=== PATIENT | female | born 1950 | race Caucasian/White ===

== ENCOUNTER → 2018-11-04 | Outpatient (REF) | payer MEDICARE, OTHER | END | disposition home or self-care (01) | LOC: MAMMO 09:52 | PROVIDERS: ATTEND Nurse Practitioner Family | DX: N95.1 Menopausal and female climacteric states (principal) ==

== ENCOUNTER 2021-04-21 09:24 | Emergency (ER) | payer MEDICARE, OTHER ==
[2021-04-21 11:01] LABS: HEMATOCRIT 35.4 % (37.0-47.0); IMMATURE GRANULOCYTES 0.6 % (0.0-5.0); MEAN CORPUSCULAR HGB 31.1 pG CALC (26.0-32.0); MEAN CORPUSCULAR HGB CONC 31.1 g/dL CAL (32.0-36.0); NEUT# 7.43 thou/uL (2.00-7.15); RED BLOOD COUNT 3.54 mill/uL (4.20-5.60); RED CELL DISTRI WIDTH 14.2 % (11.5-15.5)
[2021-04-21 11:27] LABS: ANION GAP 14 (6-22 (CALC)); BILIRUBIN, TOTAL 0.4 mg/dL (0.0-1.4); BUN 10 mg/dL (8-23); BUN/CREATININE RATIO 17 (12-20 (CALC)); CARBON DIOXIDE 27 mmol/l (22-30); CHLORIDE 100 mmol/l (95-108); CREATININE 0.6 mg/dL (0.5-1.0); GFR > 60 ML/MIN (>=60 (CALC)); GFR FOR AFR.AMER. > 60 ML/MIN (>=60 (CALC)); SGOT/AST 23 u/l (9-36); SODIUM 137 mmol/l (137-146); TOTAL PROTEIN 7.5 g/dL (6.3-8.2)
[2021-04-21 11:30] LABS: ALKALINE PHOSPHATASE 286 u/l (38-126)
[2021-04-21] MEDS ORDERED: URSO 250250 MG PO (12:14)
[2021-04-21] MEDS ORDERED: LIPITOR40 M1 PO (12:15)
[2021-04-21] MEDS ORDERED: LEVOTHYROXIN125 MCG PO (12:15)
[2021-04-21] MEDS ORDERED: PROTONIX20 MG PO (12:16)
[2021-04-21] MEDS ORDERED: SINGLAIR 5 MG CH5 MG PO (12:16)
[2021-04-21 14:09] VITALS: BP 152/73
== END 2021-04-21 14:18 | disposition short-term general hospital (02) ==
LOC: ED 09:24
PROVIDERS: Emergency Medicine
DX: J18.9 Pneumonia, unspecified organism (principal); E78.5 Hyperlipidemia, unspecified; K21.9 Gastro-esophageal reflux disease without esophagitis; Z20.822 Contact with and (suspected) exposure to COVID-19
CPT/HCPCS: Q9967